=== PATIENT | female | born 1960 | race Caucasian/White ===

== ENCOUNTER → 2021-01-22 09:52 | Outpatient (CLI) | payer OTHER, SELFPAY ==
[2021-01-22] MEDS: COVID-19 VACC, Ad26(JANSSEN)/PF 0.5 ML IM (10:07)
== END ==
PROVIDERS: Visit Provider Internal Medicine
DX: Z23 Encounter for immunization (principal)
CPT/HCPCS: 0031A; 91303

== ENCOUNTER → 2021-05-25 09:59 | Outpatient (CLI) | payer OTHER, SELFPAY ==
--- NOTE | 2021-05-25 | DI.RAD.S_ITS ---
PROCEDURE: XR THORACIC SPINE 2V INDICATIONS: Scoliosis, unspecified TECHNIQUE: 3 views of the thoracic spine were acquired. COMPARISON: None. FINDINGS: Bones: No fractures or dislocations. No suspicious bony lesions. 12 pairs of ribs are noted, and appear intact where visualized. Moderate S-shaped scoliosis with maximal dextroscoliosis centered at the mid thoracic level with Rockwell angle of 51? and levoscoliosis centered at the L1 level with Rockwell angle of 46?. Soft tissues: No paravertebral stripe thickening. IMPRESSION: Moderate S-shaped scoliosis. Dictated by: Hossein Purcell [facility] Interpreted: Clovis Golden MD on 05/25/2021 at 12:24 Transcribed by: LILLIANA on 05/25/2021 at 12:25 Approved by: Clovis Golden M.D. on 05/25/2021 at 15:01
== END ==
PROVIDERS: PCP Student in an Organized Health Care Education/Training Program; Referring Provider Student in an Organized Health Care Education/Training Program; Visit Provider Student in an Organized Health Care Education/Training Program
DX: M41.9 Scoliosis, unspecified (principal)
CPT/HCPCS: 72070

== ENCOUNTER 2024-04-17 19:55 | Emergency (ER) | payer OTHER, SELFPAY ==
--- NOTE | 2024-04-17 20:05 | EKG_ITS ---
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
[2024-04-17 20:09] VITALS: BP 157/82; PULSE 80; RESP 18; TEMP 36.8; O2SAT 96; BMI 20.5
--- NOTE | 2024-04-17 20:18 | ED.NEUROSD ---
HPI - Neuro Symptoms/Deficit General Chief Complaint: Eye Problems Stated Complaint: left eye suddenly went blind, now a big dark spot Time Seen by Provider: 04/17/24 20:17 Source: patient Mode of arrival: Ambulatory History of Present Illness HPI Narrative: Patient is a 64-year-old female history of aneurysm with rupture about 10 years ago migraine headaches presenting today with left visual loss which has now improved. Her last known well was at 7:00 p.m.. She reports that she was outside working in the garden all day came in had 1 sip of wine and then reports an ink blot vision impairment. It lasted for about 20 minutes and has completely resolved. She denies any facial droop difficulty speaking numbness tingling or weakness. She has had headaches with aura and before but this feels different. She has not on any anticoagulation. Related Data Home Medications Medication Instructions Recorded Confirmed No Known Home Medications 03/31/22 03/31/22 Allergies Allergy/AdvReac Type Severity Reaction Status Date / Time INGREDIENT: NO KNOWN - NO Allergy Unknown Uncoded 03/31/22 11:23 KNOWN DRUG ALLERGY Patient History Social History Smoking Status: Current every day smoker Smoking Status: Current every day smoker alcohol intake frequency: 0-2 drinks per day Substance Use Type: does not use Exam Initial Vital Signs Initial Vital Signs: Vital Signs Temperature 98.3 F 04/17/24 20:09 Pulse Rate 80 04/17/24 20:09 Respiratory Rate 18 04/17/24 20:09 Blood Pressure 157/82 H 04/17/24 20:09 Pulse Oximetry 96 04/17/24 20:09 Oxygen Delivery Method Room Air 04/17/24 20:09 GENERAL: Alert pleasant 64-year-old HEENT: Head atraumatic,EOMI, pupils reactive, face symmetric, moist mucous membranes CARDIOVASCULAR: Regular rate and rhythm without murmurs, rubs or gallops. RESPIRATORY: Breath sounds equal bilaterally, no wheezes rales or rhonchi. ABDOMEN: Soft, nontender. Normoactive bowel sounds all 4 quadrants. No guarding or rebound. EXTREMITIES: Normal range of motion, no clubbing or edema. Neurovascularly intact NEUROLOGICAL: Alert and oriented x4.Normal gait and speech. Cranial nerves II through XII grossly intact. Good ldywnu-zc-hung, good lzdi-vw-lmup, strength equal bilaterally, no dysarthria or aphasia, sensation in tact to soft touch bilaterally, no visual changes, no facial droop SKIN: Warm, dry, no laceration, no petechiae, no rashes or lesions. Scores ABCD2 Age >= 60 years: yes Initial BP. Either SBP >= 140 or DBP >= 90.: yes Clinical features of the TIA: other symptoms Duration of symptoms: 10-59 minutes History of diabetes: no ABCD2 Score: 3 NIH Stroke Scale Level of Conciousness: Alert, keenly responsive Ask month/age: Answers both questions correctly. Open/close eyes, close hand: Performs both tasks correctly Best gaze horizontal: Normal Visual colin: No visual loss Facial palsy: Normal symetrical movement Left arm drift: No drift for full 10 sec Right arm drift: No drift for full 10 sec Left leg drift: No drift for full 5 sec Right leg drift: No drift for full 5 sec Limb ataxia: Absent Sensory on face/arms/legs: Normal, no sensory loss Best language: No aphasia, normal Dysarthria: Normal Extinction or inattention: No abnormality Total NIH Stroke scale score: 0 Course Orders Ordered: ED Orders 04/17/24 20:09 Complete Blood Count AUTO DIFF Stat Comprehensive Metabolic Panel Stat Ethanol (ETOH) Stat PTT Partial Thromboplastin Adam Stat Prothrombin Time INR Stat Troponin & CK Cardiac Panel Stat 04/17/24 20:15 Consult to DECONTAMINATION TECHNICIAN - Resident Care Manager Stat 04/17/24 20:17 CT angio head and neck Stat CT head/brain wo con Stat 04/17/24 20:18 EKG-12 Lead Stat Vital Signs Vital signs: Vital Signs - 8 hr 04/17/24 21:14 Pulse Rate 65 Respiratory Rate 13 Blood Pressure 101/58 L Pulse Oximetry 94 MDM - Neuro Symptoms/Deficit Lab Data 04/17/24 20:09 04/17/24 20:09 Labs: Lab Results 04/17/24 Range/Units 20:09 WBC 5.8 (4.5-11.0) X10^3/uL RBC 3.88 L (4.0-5.2) X10^6/uL Hgb 12.7 (12.0-16.0) g/dL Hct 36.9 (36-46) % MCV 95.2 (80-100) fL MCH 32.7 (26-34) PG MCHC 34.3 (30-36) % RDW 13.5 (11.6-14.8) % Plt Count 296 (150-400) X10^3/uL Neut % (Auto) 47.4 L (50-75) % Lymph % (Auto) 41.8 H (25-40) % [place] % (Auto) 6.4 (3-14) % Eos % (Auto) 3.3 (2-4) % Baso % (Auto) 1.1 (0-2) % Neut # (Auto) 2700 (4074-1240) /uL Lymph # (Auto) 2400 (8604-3509) /uL [place] # (Auto) 400 (0-900) /uL Eos # (Auto) 200 (0-450) /uL Baso # (Auto) 100 (0-100) /uL PT 10.6 (9.4-12.5) SECONDS INR 0.9 (0.9-1.3) APTT 37 H (25.1-36.5) SECONDS Sodium 137 (137-145) mmol/L Potassium 4.1 (3.4-5.1) mmol/L Chloride 105 (98-107) mmol/L Carbon Dioxide 27 (22-32) mmol/L BUN 17 (7-17) mg/dL Creatinine 0.87 (0.52-1.04) mg/dL Estimated GFR > 60 (>60) mL/min BUN/Creatinine Ratio 19.5 (6-22) Glucose 104 (80-110) mg/dL Calcium 9.7 (8.4-10.2) mg/dL Total Bilirubin 0.5 (0.2-1.3) mg/dL AST 29 (14-36) IU/L ALT 20 (<35) IU/L Alkaline Phosphatase 84 (38-126) U/L Total Creatine Kinase 147 H (30-135) U/L Troponin I < 0.012 (0.01-0.034) ng/mL Total Protein 7.5 (6.3-8.2) g/dL Albumin 4.6 (3.5-5.0) g/dL Globulin 2.9 (1.7-4.1) g/dL Albumin/Globulin Ratio 1.6 (1.0-2.8) Ethyl Alcohol < 10 ( - 10) mg/dL Imaging Data CTA - brain/neck: Radiologist's Impression: PROCEDURE: CT ANGIO HEAD AND NECK INDICATIONS: History of aneurysm left eye vision change TECHNIQUE: After the administration of intravenous contrast, 1 mm thick sections acquired from the aortic arch through the [place] of Toribio. 3-dimensional eeqqucj-dwinwjwyj-kabzapeakc (MIP) and/or volume rendering reformats were acquired of the central intracranial vasculature and neck separately. For radiation dose reduction, the following was used: automated exposure control, adjustment of mA and/or kV according to patient size. COMPARISON: None. FINDINGS: Image quality: Diagnostic HEAD ANGIOGRAPHY: Anterior circulation: ICAs: Mild calcifications Proximal parts of the ophthalmic artery are patent where visualized ACAs: Normal and symmetric MCAs: Normal and symmetric AComm: No aneurysm Venous sinuses: Not well evaluated on this study, no occlusive thrombus seen Posterior circulation: Dominance: Left Vertebral arteries: No stenosis or occlusion. No aneurysm. Basilar artery: Unremarkable PComms: No aneurysm maintenance specialist: Unremarkable NECK ANGIOGRAPHY: Aortic arch and subclavian arteries: Normal flow, no aneurysm. CCAs: No stenosis, occlusion, or aneurysm. ICA origins (by NASCET criteria): No hemodynamically significant narrowing. ICAs: No stenosis, occlusion or aneurysm. ECAs: Origins are patent. Vertebral arteries: Unremarkable Soft tissues: No significant mass, aneurysm, or lymphadenopathy Lung apices: No pneumothorax Bones: No acute or suspicious abnormality. IMPRESSION: No large vessel occlusion or high-grade stenosis. Other findings as above. If there is high concern for infarct, consider MRI. Any quantitative measurements of stenosis were performed using NASCET criteria. Dictated by: Markie Colmenares M.D. on 04/17/2024 at 21:24 Approved by: Markie Colmenares M.D. on 04/17/2024 at 21:29 CT scan - head: Radiologist's Impression: PROCEDURE: CT HEAD/BRAIN WO CON INDICATIONS: left eye vision changes now resolved TECHNIQUE: Noncontrast 4.5 mm thick angled axial sections acquired from the foramen magnum to the vertex, with coronal and sagittal reformats. For radiation dose reduction, the following was used: automated exposure control, adjustment of mA and/or kV according to patient size. COMPARISON: None. FINDINGS: Image quality: Diagnostic CSF spaces: Basal cisterns are patent. Lateral ventricles are symmetric. Volume: Vascular calcifications. Periventricular white matter disease is commonly seen with chronic microangiopathy. Volume loss is present. These findings are fzoa-dt-hvvozjvt Brain: No acute intracranial hemorrhage or gross loss of dorman-white differentiation Craniofacial structures: No significant paranasal sinus opacity IMPRESSION: No acute intracranial abnormality. Consider MRI if there is high concern for infarct Dictated by: Markie Colmenares M.D. on 04/17/2024 at 21:17 ECG Data Attestation: I personally reviewed and interpreted this ECG as follows: Interpretation: Normal sinus rhythm rate 75 CO interval 148 QRS [address] changes no priors to compare no ischemia MDM Narrative Medical decision making narrative: MDM CC: Vision change Complicating co-morbidities: Cerebral aneurysm with coil Medical records reviewed: Yes very little in chart Differential considered: Migraine headache with aura retinal detachment retinal artery occlusion, intracranial hemorrhage CVA vessel occlusion Exam documented above, pertinent findings include: NIH stroke scale 0, bedside ultrasound does not show any retinal detachment Lab Test results independently reviewed as above. Pertinent findings: WBC 5.8 hemoglobin 12.7 hematocrit 36.9 platelet 296, sodium 137 potassium 4.1 chloride 105 carbon dioxide 27 BUN 17 creatinine 0.8 glucose 104 bilirubin 0.5 AST 29 ALT 20 alk-phos 84 CPK 147 troponin negative Independently reviewed EKG as above Imaging studies independently reviewed: No intracranial hemorrhage no large vessel occlusion Consultations: None Treatments: None Re-evaluations: None Discussion: Patient presents with visual change black spot in her left vision. There is no further loss of vision symptoms have completely resolved. He has not a TNK candidate. No evidence retinal detachment on bedside ultrasound. Imaging does not show any evidence of large vessel occlusion or intracranial hemorrhage. She is comfortable. ABCD2 score is 3. NIH stroke score is 0. 22:10 patient getting very anxious just wants to leave. She states that her is going through alcohol withdrawal at home and she needs to get back. At this time unclear if it is TIA versus ocular migraine versus other. Discussed with her signs and symptoms and when to return she understands and agrees. Discharge Plan Departure Patient Disposition: Home Clinical Impression: Change in vision Instructions: DI for Visual Field Disturbances Activity Restrictions/Additional Instructions: *You have been diagnosed with visual change *What to do: At this time blood work and CT scans are overall reassuring. You recommend that you may need to follow up with Ophthalmology and possibly your PCP as well. *Continue to take medications as directed *Follow up with your primary care provider in 2-3 days or call [phone] *Return to ER if you should have recurrent loss of vision numbness tingling weakness or any new, worsening or concerning symptoms Prescriptions: No Action No Known Home Medications Referrals: Leah Carbajal MD [Primary Care Provider] - Stand Alone Forms: Patient Portal/API
[2024-04-17 20:27] LABS: Add Manual Diff / Slide Review NO; Basophils Absolute Auto 100 /uL (0-100); Basophils Percent Auto 1.1 % (0-2); Eosinophils Absolute Auto 200 /uL (0-450); Eosinophils Percent Auto 3.3 % (2-4); Hematocrit 36.9 % (36-46); Hemoglobin 12.7 g/dL (12.0-16.0); Lymphocytes Absolute Auto 2400 /uL (1100-4500); Lymphocytes Percent Auto 41.8 % (25-40); Mean Corpuscular HGB Conc 34.3 % (30-36); Mean Corpuscular Hemoglobin 32.7 PG (26-34); Mean Corpuscular Volume 95.2 fL (80-100); Monocytes Absolute Auto 400 /uL (0-900); Monocytes Percent Auto 6.4 % (3-14); Neutrophils Absolute Auto 2700 /uL (1500-7000); Neutrophils Percent Auto 47.4 % (50-75); Platelet Count 296 X10^3/uL (150-400); Red Blood Cell Count 3.88 X10^6/uL (4.0-5.2); Red Cell Distribution Width 13.5 % (11.6-14.8); White Blood Cell Count 5.8 X10^3/uL (4.5-11.0)
[2024-04-17 20:28] LABS: INR 0.9 (0.9-1.3); Prothrombin Time 10.6 SECONDS (9.4-12.5)
[2024-04-17 20:31] LABS: PTT Partial Thromboplastin Tim 37 SECONDS (25.1-36.5)
[2024-04-17 20:33] LABS: Alanine Aminotransferase 20 IU/L (<35); Albumin 4.6 g/dL (3.5-5.0); Albumin Globulin Ratio 1.6 (1.0-2.8); Alkaline Phosphatase 84 U/L (38-126); Aspartate Aminotransferase 29 IU/L (14-36); BUN Creatinine Ratio 19.5 (6-22); Bilirubin Total 0.5 mg/dL (0.2-1.3); Blood Urea Nitrogen 17 mg/dL (7-17); Calcium 9.7 mg/dL (8.4-10.2); Carbon Dioxide 27 mmol/L (22-32); Chloride 105 mmol/L (98-107); Creatine Kinase 147 U/L (30-135); Estimated Glomerular Filt Rate > 60 mL/min (>60); Globulin 2.9 g/dL (1.7-4.1); Glucose 104 mg/dL (80-110); HEMOLYSIS < 15 (0-50); Potassium 4.1 mmol/L (3.4-5.1); Sodium 137 mmol/L (137-145); Total Protein 7.5 g/dL (6.3-8.2)
[2024-04-17 20:44] LABS: Troponin I < 0.012 ng/mL (0.01-0.034)
[2024-04-17 20:48] LABS: Ethanol (ETOH) < 10 mg/dL
[2024-04-17 21:14] VITALS: BP 101/58; PULSE 65; RESP 13; O2SAT 94
== END 2024-04-17 22:22 | disposition home or self-care (01) ==
PROVIDERS: Emergency Provider Emergency Medicine; PCP Student in an Organized Health Care Education/Training Program
DX: H53.8 Other visual disturbances (principal); R03.0 Elevated blood-pressure reading, without diagnosis of hypertension; Z86.79 Personal history of other diseases of the circulatory system
CPT/HCPCS: 70450; 70496; 70498; 80053; 80320; 82550; 84484; 85025; 85610; 85730; 93005; 99284; Q9967

== ENCOUNTER → 2024-08-23 | Outpatient (CLI) | payer OTHER, SELFPAY ==
--- NOTE | 2024-08-23 13:55 | DI.RAD.S_ITS ---
PROCEDURE: XR DEXA AXIAL SKELETON INDICATIONS: screening for osteoporosis COMPARISON: None. FINDINGS: Lumbar Spine: Bone mineral density 1.008 g/cm2, T score -0.1. Left Hip: Bone mineral density 0.896 g/cm2, T score -0.4. Left Femoral Neck: Bone mineral density 0.865 g/cm2, T score 0.1. Right Hip: Bone mineral density 0.922 g/cm2, T score -0.2. Right Femoral Neck: Bone mineral density 0.8630 g/cm2, T score 0.1. Fracture Risk Calculation (when applicable): FRAX score not calculated due to T-scores greater than -1.0. (T score greater or equal to -1.0 to: NORMAL) (T score from -1.1 to -2.4: OSTEOPENIA) (T score less than or equal to -2.5: OSTEOPOROSIS) IMPRESSION: By WHO criteria, patient has normal bone mineral density. Follow-up guidelines as follows: Osteoporosis: Consider a repeat DEXA and Vertebral Fracture Assessment (VFA) exam in 2 years or sooner if medically necessary, to reassess this patient's status. Osteopenia: Consider a repeat DEXA in 2-3 years to reassess this patient's status, or if there is a new clinical indication. Normal: Consider a repeat DEXA in 5 years or sooner, or if there is a new clinical indication. All treatment decisions require clinical judgment and consideration of individual patient factors, including patient preferences, comorbidities, previous drug use, risk factors not captured in the FRAX model (e.g., frailty, falls, vitamin D deficiency, increased bone turnover, interval significant decline in bone density ) and possible under- or over-estimation of fracture risk by FRAX. In addition, the NOF Guide recommends that FDA-approved medical therapies be considered in postmenopausal women and men age >= 50 years with a: * Hip or vertebral (clinical or morphometric) fracture * T-score of <=-2.5 at the spine or hip * Ten-year fracture probability by FRAX of >= 3% for hip fracture or >=20% for major osteoporotic fracture. People with diagnosed cases of osteoporosis or at high risk for fracture should have regular bone mineral density tests. For patients eligible for Medicare, routine testing is allowed once every 2 years. The testing frequency can be increased to one year for patients who have rapidly progressing disease, those who are receiving or discontinuing medical therapy to restore bone mass, or have additional risk factors. Approved by: Pete Verdin M.D. on 08/23/2024 at 21:20
--- NOTE | 2024-08-23 13:55 | DI.MG.S_ITS ---
BILATERAL DIGITAL SCREENING MAMMOGRAM 3D/2D WITH CAD: 08/23/2024 CLINICAL: Routine screening. Family history of breast cancer. No prior exams were available for comparison. There are scattered areas of fibroglandular density (category b / 25%-50% glandular tissue). Current study was also evaluated with a Computer Aided Detection (CAD) system. No significant masses, calcifications, or other findings are seen in either breast. IMPRESSION: NEGATIVE There is no mammographic evidence of malignancy. A 1 year screening mammogram is recommended. Based on the Tyrer Cuzick model (a risk assessment model) the patient's lifetime risk is 10.1% and her 10 year risk is 4.5%. According to the ACR, ACS, and NCCN guidelines, an annual breast MRI exam along with mammogram is recommended if the patient's lifetime risk is 20% or greater. This exam was interpreted at Station ID: [id number]. NOTE: For mammograms, a report in lay terms will be sent to the patient. Approximately 15% of breast malignancies will not be visualized mammographically. In the management of a palpable breast mass, a negative mammogram must not discourage biopsy of a clinically suspicious lesion. Electronically Signed By: Adina Pena M.D., Ph.D. jc/jose maria:09/03/2024 11:45:38 letter sent: Normal Exam ACR BI-RADS Category 1: Negative
--- NOTE | 2024-08-23 13:55 | DI.CT.S_ITS ---
PROCEDURE: CT LUNG LOW DOSE SCREENING INDICATIONS: screen for lung cancer TECHNIQUE: Noncontrast 2.0-2.5 mm thick sections acquired from the pulmonary apices to the posterior costophrenic angles. 7 mm thick axial MIP, and 5 mm coronal and sagittal reformats were then acquired. For radiation dose reduction, the following was used: automated exposure control, adjustment of mA and/or kV according to patient size. COMPARISON: None. FINDINGS: Image quality: Diagnostic. Lower Neck: No enlarged lymph nodes. Thyroid: No thyroid nodules which require sonographic follow up, per consensus guidelines. Axillae: No enlarged lymph nodes. Chest Wall: Unremarkable. Bones: Unremarkable. Lungs and Pleura: No pneumothorax or pleural effusions. No suspicious pulmonary nodules. A band of alveolar infiltration is present at the left lower lobe best seen centered on series 3, image 180 measuring approximately 2.6 x 2.1 cm. Heart: Heart size is normal. No pericardial effusion. Thoracic Vessels: The aorta and pulmonary arteries demonstrate normal size. Mediastinum and Genet: No enlarged lymph nodes. Esophagus: No wall thickening. No hiatal hernia. Upper Abdomen: Visualized upper abdomen solid organs and bowel loops appear normal. IMPRESSION: A band of infiltration is seen at the left lower lobe but a solid pulmonary nodule is not identified. The infiltration pattern could represent postinflammatory scarring, acute mild focal inflammation, and very rarely could manifest as a low-grade lung carcinoma. Therefore in this clinical circumstance the study is not considered normal. LUNG-RADS category 3; follow-up in 6 months utilizing noncontrast low-dose CT scanning technique is recommended. Clinically Significant Non-pulmonary Findings: Prominent convex rightward scoliosis centered at the middle 3rd of the thoracic spine. Dictated by: Preet Kowalski M.D. on 08/23/2024 at 16:46 Approved by: Preet Kowalski M.D. on 08/23/2024 at 16:51
== END ==
PROVIDERS: PCP Family Medicine; Referring Provider Family Medicine; Visit Provider Family Medicine
DX: Z12.31 Encounter for screening mammogram for malignant neoplasm of breast (principal); Z12.2 Encounter for screening for malignant neoplasm of respiratory organs; R91.8 Other nonspecific abnormal finding of lung field; F17.210 Nicotine dependence, cigarettes, uncomplicated; M81.0 Age-related osteoporosis without current pathological fracture; M41.9 Scoliosis, unspecified; Z80.3 Family history of malignant neoplasm of breast
CPT/HCPCS: 71271; 77063; 77067; 77080

== ENCOUNTER 2024-09-27 08:02 | Day surgery (SDC) | payer OTHER, SELFPAY ==
--- NOTE | 2024-09-27 | PATH_ITS ---
[facility] Accession Number: [id number] No. of containers..02 Tissue . 01 Material submitted: . PART A: colon - SIGMOID POLYP PART B: rectum - RECTUM POLYP . 01 Diagnosis: Part A: SIGMOID POLYP: Hyperplastic polyp. . Part B: RECTUM POLYP: Hyperplastic polyp. [facility] 09/30/2024 1515 Local . 01 Electronically signed: . Stevie Almaguer MD, Pathologist NPI- [id number] . 01 Gross description: . A. Received in formalin, labeled with two patient identifiers and sigmoid polyp, are multiple james soft tissue fragments admixed with other biological material aggregating to 1.3 x 0.8 x 0.3 cm. Filtered and submitted in cassette A1. . B. Received in formalin, labeled with two patient identifiers and rectum polyp, is a single james soft tissue fragment measuring 0.4 cm in greatest dimension. Submitted in cassette B1. ([id number]) /FRR 09/30/2024 1515 Local . 01 Pathologist provided ICD-10: K63.5 . 01 CPT . 283084, 026200 Specimen Comment: A courtesy copy of this report has been sent to [facility] Pathology Performed at: [address] [place] [address], [place], [place] [id number] MD Stevie Almaguer MD Phone: [phone]
[2024-09-27 08:42] VITALS: BP 125/79; PULSE 86; RESP 16; TEMP 36.9; O2SAT 97
--- NOTE | 2024-09-27 09:17 | P.HP_ITS ---
History of Present Illness History of Present Illness Date Patient Seen: 09/27/24 Time Patient Seen: 09:17 Chief complaint: Screening Colonoscopy Narrative: 64-year-old white female with a personal history polyps. No changes in her health otherwise. [facility] Medical History Depression Stroke (~1990) Migraines (~1982) Chronic back pain Chicken pox Hearing loss (~2022) Preventative health care History of colon polyps Tobacco use disorder Scoliosis Nasal septal deviation History of CVA (cerebrovascular accident) Vision loss of left eye Surgical History Anesthesia History of appendectomy History of tonsillectomy Family History Father Stroke Grandfather Parkinson's disease Grandmother Broken neck Fall Grandmother Cancer Social History Smoking Status: Current every day smoker alcohol intake: current Meds Home Medications and Allergies Home Medications Medication Instructions Recorded Confirmed Type ibuprofen 200 mg capsule 200 mg PO Q6H PRN Pain (Scale 08/13/24 09/27/24 History Score 1-3) Allergies Allergy/AdvReac Type Severity Reaction Status Date / Time clams Allergy Mild Verified 08/13/24 09:22 Review of Systems Review of Systems ROS: Yes All systems reviewed with the patient and are negative except as otherwise documented Exam Vital Signs (past 8 hours): - 09/27/24 08:42 Temperature 98.4 F Pulse Rate 86 Respiratory Rate 16 Blood Pressure 125/79 Pulse Oximetry 97 Oxygen Delivery Method Room Air Oxygen Delivery Method Room Air Narrative Exam Narrative: Gen: NAD, sitting comfortably in bed, appears well HEENT: Sclera are anicteric, head is normocephalic and atraumatic, trachea is midline. CV: RRR, no JVD Resp: clear to auscultation bilaterally, equal chest wall movement bilaterally Abd: soft, nontender, normoactive bowel sounds Ext: no edema, full range of motion Neuro: Cranial nerves II-XII grossly intact, no focal deficits Skin: No erythema or ecchymosis Assessment & Plan Assessment and plan (1) History of colon polyps: Status: Acute Assessment & Plan narrative: Patient presents for initial screening colonoscopy Risks, benefits, alternatives to colonoscopy explained, including but not limited to bowel perforation or other serious complication requiring surgery at less than 1 in 5000 colonoscopies, abdominal pain, cramping or bleeding and less than 1% of colonoscopies, and the chances that we find a diagnosis that would re quire further intervention of about 2%. Patient agrees to proceed. Time-Based Coding :: [TOTAL MINUTES] spent with patient and on the chart (including review of chart, obtaining history, exam, reviewing outside data, placing orders, documenting exam and treatment plan, and counseling patient) on [DATE].
--- NOTE | 2024-09-27 09:50 | PM.OP.COLON ---
Operative Date/Time/Diagnoses Date of procedure: 09/27/24 Time of procedure: 09:50 Pre-op diagnosis: Personal history of polyps Post-op diagnosis: other (Sigmoid polyps x2, rectal polyp 1, likely hyperplastic) Procedure & Clinicians Study performed: Colonoscopy with snare polypectomy Same procedure as scheduled: Yes Indications: Personal history of polyps Surgeon: Kevin Ramos Procedure Notes SCOAP/Timeout: Performed Procedure in detail: Time-out was performed. Mac was induced. Patient was placed in left lateral decubitus position. The perineum was inspected without any gross abnormality. Lubricated pediatric colonoscope was inserted and advanced to the cecum. The terminal ileum was intubated. The colonoscope was withdrawn slowly inspecting the circumference of the colon. Sessile polyps x2 were noted in the sigmoid. These were taken with cold snare and retrieved. Sessile polyp noted in the rectum, patient had hyperplastic appearing polyps of the rectum. One communications representative hyperplastic polyp, the largest of which was taken by cold snare. Very small polyps may have been missed, prep quality was adequate. Retroflexed view of the rectum showed small, non prolapsed nonbleeding internal hemorrhoids. The scope was withdrawn the patient was taken to PACU in good condition. Scope withdrawal time: 13 Sedation minutes: 24 Findings: polyp(s) Specimen(s): other (1. Sigmoid polyp x2 2. Rectal polyp) Complications: none Impression: Multiple polyps, benign-appearing Post-procedure Recommendations: Colonoscopy in 3 years Follow up: as needed Disposition: PACU
[2024-09-27 09:54] VITALS: BP 116/76; PULSE 78; RESP 14; TEMP 36.4; O2SAT 96
[2024-09-27 09:56] VITALS: BP 110/75; PULSE 78; RESP 15; O2SAT 96
[2024-09-27 09:59] VITALS: BP 107/74; PULSE 74; RESP 17; O2SAT 96
[2024-09-27 10:07] VITALS: BP 112/68; PULSE 76; RESP 16; O2SAT 100
== END 2024-09-27 10:24 | disposition home or self-care (01) ==
PROVIDERS: PCP Family Medicine; Referring Provider Surgery; Visit Provider Surgery
PROC: 0DJD8ZZ Inspection of Lower Intestinal Tract, Via Natural or Artificial Opening Endoscopic (ICD-10-PCS; CPT 45378; principal; 2024-09-27 09:15)
DX: Z12.11 Encounter for screening for malignant neoplasm of colon (principal); Z86.0100 Personal history of colon polyps, unspecified; K63.5 Polyp of colon; K62.1 Rectal polyp
CPT/HCPCS: 45385; J2704

== ENCOUNTER → 2024-09-30 09:58 | Outpatient (CLI) | payer OTHER, SELFPAY ==
[2024-09-30 11:44] LABS: Cholesterol 231 mg/dL (140-199); HDL Cholesterol 90 mg/dL (40-60); LDL Cholesterol Calculated 130 mg/dL (<100); Triglycerides 56 mg/dL (35-150)
[2024-09-30 12:09] LABS: TSH w/ Reflex to FT4 0.76 uIU/mL (0.47-4.68)
== END ==
PROVIDERS: PCP Family Medicine; Referring Provider Family Medicine; Visit Provider Family Medicine
DX: Z00.00 Encounter for general adult medical examination without abnormal findings (principal); Z13.29 Encounter for screening for other suspected endocrine disorder; Z13.220 Encounter for screening for lipoid disorders
CPT/HCPCS: 36415; 80061; 84443

== ENCOUNTER → 2025-03-17 09:14 | Outpatient (CLI) | payer OTHER, SELFPAY ==
--- NOTE | 2025-03-17 09:15 | DI.CT.S_ITS ---
PROCEDURE: CT CHEST WO CON INDICATIONS: f/u LLL infiltrate TECHNIQUE: Noncontrast 5 mm thick sections acquired from the pulmonary apices to the posterior costophrenic angles. 1 mm lung window, 5 mm thick coronal and sagittal and 7 mm axial MIP reformats were then acquired. For radiation dose reduction, the following was used: automated exposure control, adjustment of mA and/or kV according to patient size. COMPARISON: [facility], CT, CT ANGIO HEAD AND NECK, 04/17/2024, 20:38. [facility], CT, CT LUNG LOW DOSE SCREENING, 08/23/2024, 15:09. FINDINGS: Image quality: Diagnostic. Lower Neck: No enlarged lymph nodes. Thyroid: No thyroid nodules which require sonographic follow up, per consensus guidelines. Axillae: No enlarged lymph nodes. Chest Wall: Unremarkable. Bones: Marked scoliosis. No suspicious osseous lesion. Lungs and Pleura: No pneumothorax or pleural effusions. No consolidation or suspicious nodules. A curvilinear opacity at the left major fissure, (5/30), stable to slightly decreased. Heart: Heart size is normal. Mitral annular calcification. No pericardial effusion. Thoracic Vessels: The aorta and pulmonary arteries demonstrate normal size. Mediastinum and Genet: No enlarged lymph nodes. Esophagus: No wall thickening. No hiatal hernia. Upper Abdomen: Visualized upper abdomen solid organs and bowel loops appear normal. IMPRESSION: 1. Curvilinear opacity at the left major fissure is stable to slightly decreased in size. Most likely scarring. Lung RADS 2. -Recommend follow-up lung cancer screening chest CT in 1 year. 2. No acute airspace opacity. 3. Marked scoliosis. Dictated by: Jorge Del Real M.D. on 03/17/2025 at 14:03 Approved by: Jorge Del Real M.D. on 03/17/2025 at 14:14
== END ==
LOC: CT 09:14
PROVIDERS: PCP Family Medicine; Referring Provider Family Medicine; Visit Provider Family Medicine
DX: R91.8 Other nonspecific abnormal finding of lung field (principal); E78.9 Disorder of lipoprotein metabolism, unspecified; Z13.29 Encounter for screening for other suspected endocrine disorder; M41.9 Scoliosis, unspecified
CPT/HCPCS: 71250